=== PATIENT | female | born 1985 | race Caucasian/White ===

== ENCOUNTER 2016-06-08 12:39 | Emergency (ER) | payer OTHER ==
[~2016-06-08] VITALS: Wt 78.0 kg
[~2016-06-08 12:39] MED LIST: BENZ100C70 PO; CALC-516 PO; FERR240T9 PO; PREN-39 PO; PSEU120T11 PO; UDROBDM PO
[2016-06-08] MEDS ORDERED: LIDOCAINE 1%/EPI 30 ML INJ INJ STA (13:23)
[2016-06-08] MEDS ORDERED: HYDROGEN PEROXIDE 118 ML TOP ONE (13:30)
--- NOTE | 2016-06-08 13:38 | ERD ---
ER Documentation Chief Complaint Date/Time DATE: 06/08/16 TIME: 13:34 Chief Complaint POSSIBLE INFECTED CHEEK PRIECING HPI Patient is a 31-year-old female who presents with request for removal of bilateral cheek piercings. She states that she had been placed 3 weeks ago, and presents with gradual onset, constant, mild to moderate irritation to both with mild drainage of pus from the right piercing. She states that her buccal mucosa has grown over the piercing so she is no longer able to remove them. She denies fever, redness or swelling of the cheeks. ROS All systems reviewed and are negative except as per history of present illness. Medications Home Meds Active Scripts Cephalexin* (Cephalexin* Susp) 250 Mg/5 Ml Susp.recon, 500 MG PO Q6 for 7 Days, #1 BOTTLE Prov:CHENTE SALCEDO MD 06/08/16 Guaifenesin-Dextromethorphan* (Robitussin* DM) 100MG/10MG/5ML Syrup, 5 ML PO Q4H Y for COUGH for 14 Days, ML Prov:MARIANNA GUARDADO PA-C 02/04/16 Benzonatate* (Tessalon Perle*) 100 Mg Capsule, 100 MG PO Q8H Y for COUGH for 14 Days, CAP Prov:MARIANNA GUARDADO PA-C 02/04/16 Pseudoephedrine Hcl (Sudafe 12-Hour) 120 Mg Tablet.er, 120 MG PO BID Y for CONGESTION for 14 Days, TAB.SA Prov:MARIANNA GUARDADO PA-C 02/04/16 Reported Medications Calcium Carbonate/Vitamin D3 (OYSTER SHELL CALCIUM TABLET) 1 Each Tablet, 1 EACH PO DAILY, TAB 04/13/15 Ferrous Gluconate (Iron) 1 Tab Tablet, 1 TAB PO DAILY, TAB 04/13/15 Vits W-Ca,Fe,Fa(<1MG) ( Vitamins) 1 Tab Tablet, 1 TAB PO DAILY , TAB 04/13/15 Allergies Allergies: Coded Allergies: No Known Allergies (Verified Allergy, Unknown, 02/04/16) PMhx/Soc Past medical history: None Past surgical history: None Social history: Denies tobacco or alcohol Medical and Surgical Hx: pt denies Medical Hx, pt denies Surgical Hx History of Surgery: No Anesthesia Reaction: No Hx Neurological Disorder: No Hx Respiratory Disorders: No Hx Cardiac Disorders: No Hx Psychiatric Problems: No Hx Miscellaneous Medical Probl: No Hx Alcohol Use: Yes (Social) Hx Substance Use: No Hx Tobacco Use: No FmHx Family History: No coronary disease, No diabetes Physical Exam Vitals Vital Signs Date Time Temp Pulse Resp B/P Pulse Ox O2 Delivery O2 Flow Rate FiO2 06/08/16 12:43 98.0 71 18 143/77 99 Physical Exam Const: Alert, no acute distress Head: Atraumatic Eyes: Normal Conjunctiva, no pallor or icterus ENT: Normal External Ears and nose. Piercings through bilateral cheeks with mucosal growth over the buccal side of the piercing. Right cheek has granulation tissue on the mucosal surface, mild induration and edema externally. Mild drainage from right sided piercing. No erythema. Mild expressible discharge Psych: Normal Mood and Affect Results 24 hrs Current Medications Medications (Trade) Dose Ordered Sig/Laureano Route PRN Reason Start Time Stop Time Status Last Admin Dose Admin Lidocaine/ Epinephrine (Xylocaine 1%/ Epi) 30 ml ONCE STAT INJ 06/08/16 13:23 06/08/16 13:39 DC Hydrogen Peroxide (Hydrogen Peroxide) 1 applic ONCE ONCE TOP 06/08/16 13:30 06/08/16 13:31 DC Lidocaine/ Epinephrine (Xylocaine 2%/ Epi (Mdv) 20 ml) 20 ml ONCE ONCE INJ 06/08/16 14:00 06/08/16 14:01 DC Procedures/MDM Procedure: Removal foreign body. Patient was consented for incision of buccal mucosa for removal of embedded piercing. Patient was advised that there is no emergent indication for this procedure, and I discussed all risks, benefits and alternatives. I did advise that this procedure would be optimally performed by an oral surgeon. Patient consented for and requested procedure in the ER. Mucosal surface was cleaned with hydrogen peroxide. 1.5 cc of 2% lidocaine with epinephrine was injected locally in the buccal mucosa on each side. A 7 mm incision was made to each side of the buccal mucosa overlying the end of the piercing. Piercing was removed by applying gentle pressure to the external edge of the piercing. Procedure was well tolerated with no immediate complication. A small amount of pus was expressed from the right side of the cheek with gentle pressure. MDM: 4-year-old female with embedded piercings with mucosal overgrowth preventing removal. The right sided piercing is associated with induration and mild discharge consistent with cellulitis. On exam there are no signs of abscess. Piercings were removed to good effect, and the patient will be discharged with Keflex for mild facial cellulitis. She is advised to return to the ER for spreading redness, fever, or other concerns. Advised Tylenol or Motrin for pain. Advised using a mouthwash or hydrogen peroxide for hygiene. Departure Diagnosis: Primary Impression: Facial cellulitis Additional Impression: Foreign body (FB) in soft tissue Condition: CHENTE Jack MD Jun 08, 2016 13:38
[2016-06-08] MEDS ORDERED: LIDOCAINE 2%/EPI (MDV) 20ML INJ INJ ONE (14:00)
[2016-06-08] MEDS ORDERED: CEPH250S33 PO (14:03)
[2016-06-08] MEDS ORDERED: ACETAMINOPHEN 500 MG TAB PO STA (14:45)
== END 2016-06-08 15:01 | disposition home or self-care (01) ==
LOC: FTE 12:39
DX: L03.211 Cellulitis of face (principal); L92.3 Foreign body granuloma of the skin and subcutaneous tissue; Z18.9 Retained foreign body fragments, unspecified material
CPT/HCPCS: Z7502; Z7610

== ENCOUNTER 2016-12-23 18:04 | Emergency (ER) | payer SELFPAY ==
[~2016-12-23] VITALS: Wt 81.8 kg
[~2016-12-23 18:04] MED LIST changes: +CEPH250S33 PO
== END 2016-12-23 21:00 | disposition left against medical advice (07) ==
LOC: FTE 18:04 → E/R 21:00
DX: Z53.21 Procedure and treatment not carried out due to patient leaving prior to being seen by health care provider (principal)